=== PATIENT | female | born 1965 | race Caucasian/White ===

== ENCOUNTER 2021-03-22 09:53 | Inpatient (IN) | payer BC ==
[~2021-03-22] VITALS: Ht 177.8 cm; Wt 76.7 kg
[2021-03-22 11:07] LABS: CLARITY,URINE SLIGHTLY CLOUDY (Clear); COLOR,URINE YELLOW (Yellow); GLUCOSE, URINE NEGATIVE (Neg); KETONES,URINE NEGATIVE (Neg); LEUKOCYTE ESTERASE ,URINE NEGATIVE (Neg); NITRITES, URINE NEGATIVE (Neg); OCCULT BLOOD,URINE TRACE-INTACT (Neg); PROTEIN,URINE NEGATIVE (Neg); UROBILINOGEN,URINE 0.2 E.U/dL (0.2-1.0)
[2021-03-22 11:23] LABS: UA COLLECTION TYPE CLN CATCH MIDSTREAM
[2021-03-22 11:24] LABS: BACTERIA,URINE 1+ /HPF (Neg); MUCUS STRANDS FEW /LPF (Neg); SQUAMOUS EPITHELIAL CELL,UR MODERATE /LPF (FEW); WBC,URINE 0-4 /HPF (0-4)
[2021-03-22] MEDS ORDERED: ondansetron/PF 4mg/2ml inj IV ONE ×3 (15:40→21:25)
[2021-03-22] MEDS ORDERED: ketorolac tromethamine 15mg/ml inj. IV ONE (15:40)
[2021-03-22] MEDS ORDERED: normal saline 1000ml 1,000 ML IV ONE ×2 (15:40→17:20)
[2021-03-22 16:20] LABS: BASOPHILS % (AUTO) 0.4 % (0-1); EOSINOPHILS % (AUTO) 0.6 % (0-6); HEMATOCRIT 43.5 % (35.0-45.0); HEMOGLOBIN 14.4 g/dl (12.0-16.0); LYMPHOCYTES # (AUTO) 1.8 X10'3 (1.1-4.8); LYMPHOCYTES % (AUTO) 24.4 % (21-51); MEAN CORPUSCULAR HEMOGLOBIN 31.1 PG (27.0-31.0); MEAN CORPUSCULAR HGB CONC 33.2 g/dL (33.0-36.5); MEAN CORPUSCULAR VOLUME 93.9 FL (78-98); MONOCYTES # (AUTO) 0.6 X10'3 (0-0.9); MONOCYTES % (AUTO) 7.6 % (2-12); PLATELET COUNT 193 X10'3 (140-440); RED BLOOD COUNT 4.63 X10'6 (4.20-5.60); RED CELL DISTRIBUTION WIDTH 14.3 % (11.5-14.5); WHITE BLOOD COUNT 7.5 X10'3 (4.5-11.0)
[2021-03-22 16:37] LABS: ALANINE AMINOTRANSFERASE 24 U/L (12-78); ALBUMIN/GLOBULIN RATIO 1.1 (1.1-1.5); ALKALINE PHOSPHATASE 82 IU/L (46-116); ANION GAP 9 (8-16); ASPARTATE AMINO TRANSFERASE 13 U/L (10-37); BILIRUBIN,TOTAL 0.5 MG/DL (0.1-1.0); BLOOD UREA NITROGEN 19 MG/DL (7-18); BUN/CREATININE RATIO 15.3 (6.6-38.0); CALCIUM 9.1 MG/DL (8.5-10.1); CHLORIDE 107 MMOL/L (99-107); CREATININE 1.24 MG/DL (0.40-0.90); GLUCOSE 92 MG/DL (70-104); LIPASE 107 U/L (73-393); POTASSIUM 3.9 MMOL/L (3.5-5.1); SODIUM 145 MMOL/L (135-145); TOTAL CARBON DIOXIDE 28.8 MMOL/L (24-32); TOTAL PROTEIN 7.5 G/DL (6.4-8.2); eGFR 44 ML/MIN
[2021-03-22] MEDS ORDERED: morphine 4 MG/ML inj SYRINge IV ONE ×2 (17:20→21:25)
[2021-03-22] MEDS ORDERED: ZOLP5TAB8 PO (19:51)
[2021-03-22] MEDS ORDERED: TRAZ-251 PO (19:52)
[2021-03-22] MEDS ORDERED: VENL150C2 PO (19:54)
[2021-03-22] MEDS ORDERED: ALPR-624 PO (19:59)
[2021-03-22] MEDS ORDERED: SUMA25TA35 PO (20:00)
[2021-03-22] MEDS ORDERED: TOPI50TA PO (20:01)
[2021-03-22] MEDS ORDERED: TRIA10.8 BOTHNARES (20:06)
[2021-03-22] MEDS ORDERED: EREN70AU2 SQ (20:06)
[2021-03-22] MEDS ORDERED: LINA145C PO (20:07)
[2021-03-22] MEDS ORDERED: ibuprofen PO (20:09)
--- NOTE | 2021-03-22 21:06 | NUR ---
is at the bedside with pt. Addendum: 03/22/21 at [address] STUBBS AT BEDSIDE FOR ADMISSION. VITAL SIGNS STABLE AND VISITOR LEFT FOR THE NIGHT
--- NOTE | 2021-03-22 21:26 | NUR ---
VERBAL RECEIVED FOR ORDER OF MORPHINE AND ZOFRAN Addendum: 03/22/21 at 2127 by LINA BY FELI LING
[2021-03-22] MEDS ORDERED: ALPRAZolam 0.5mg tablet PO PRN (22:20)
[2021-03-22] MEDS ORDERED: SUMAtriptan 25 MG tablet PO PRN (22:20)
[2021-03-22] MEDS ORDERED: zolpidem 5mg tablet PO PRN ×2 (22:20→23:35)
--- NOTE | 2021-03-22 22:23 | NUR ---
PT PROVIDED DINNER TRAY. ATE 25%. AWAITING ADMISSION ORDERS. sTABLE VS. CURRENTLY CHA WEEKS AND USING HER TABLET.
[2021-03-22] MEDS ORDERED: HYDROmorphone/PF 0.2 MG/ML SYRINGE IV ONE (22:55)
[2021-03-22] MEDS ORDERED: HYDROmorphone 1 mg/ml syringe IV ONE (23:10)
[2021-03-23] VITALS (16 sets, daily range): BP systolic 107–142; BP diastolic 63–77
[2021-03-23] MEDS ORDERED: acetaminophen 325mg tablet PO PRN ×2 (00:10)
[2021-03-23] MEDS ORDERED: bisacodyl 10mg suppository rectal RC PRN (00:10)
[2021-03-23] MEDS ORDERED: mag hydrox/Alum hydrox/simeth 30ml oral suspension PO PRN (00:10)
[2021-03-23] MEDS ORDERED: diphenhydrAMINE 50 mg/ml inj IV PRN (00:10)
[2021-03-23] MEDS ORDERED: HYDROmorphone inj. 0.5 MG/0.5 ML DISP.SYRIN IV PRN (00:10)
[2021-03-23] MEDS ORDERED: magnesium hydroxide 30ml (MOM) UD suspension PO PRN (00:10)
[2021-03-23] MEDS ORDERED: acetaminophen 650mg rectal suppository RC PRN (00:10)
[2021-03-23] MEDS ORDERED: HYDROcodone/acetaminophen 5mg/325mg tablet PO PRN (00:10)
[2021-03-23] MEDS ORDERED: diphenhydrAMINE 25mg capsule PO PRN (00:10)
[2021-03-23] MEDS: topiramate 25mg tablet PO SCH ×2 (00:15→20:28)
[2021-03-23] MEDS: traZODone 50mg tablet PO SCH ×2 (00:19→20:20)
[2021-03-23] MEDS: dextrose 5%-1/2 normal saline 1,000 ML IV SCH ×3 (01:40→21:28)
--- NOTE | 2021-03-23 02:13 | NUR ---
Placed on hospital bed. Pt with stable vs. Currently lying on left side with blankets covering to her shouders.Awaiting ipa.
[2021-03-23 02:31] LABS: MAGNESIUM 2.1 MG/DL (1.5-2.4); PHOSPHORUS 5.4 MG/DL (2.3-4.5)
[2021-03-23] MEDS ORDERED: IBUP-1986 PO (04:46)
--- NOTE | 2021-03-23 04:50 | NUR ---
PT MOVED TO FTD ROOM. DENIES ANY NEEDS AT THIS TIME.
[2021-03-23] MEDS: ondansetron/PF 4mg/2ml inj IV PRN ×2 (07:10→13:37)
[2021-03-23] MEDS: morphine 2 MG/ML inj. syringe IV PRN ×4 (07:10→21:29)
--- NOTE | 2021-03-23 07:30 | NUR ---
Patient in room [facility]. I have received report from ROMEO Andujar (ED) and had the opportunity to ask questions and assume patient care.
[2021-03-23 07:56] LABS: PARTIAL THROMBOPLASTIN TIME 26 SECONDS (22-32)
[2021-03-23] MEDS: heparin, porcine 5000 units/ml vial SQ SCH ×2 (08:00→20:31)
[2021-03-23] MEDS ORDERED: ringers solution, lacted 1,000 ML IV ONE (08:30)
[2021-03-23] MEDS ORDERED: famotidine 20mg tablet PO ONE (08:39)
--- NOTE | 2021-03-23 08:48 | NUR ---
Called OR, patient on schedule for today after 1500. NPO starting NOW.
[2021-03-23] MEDS: pantoprazole 40mg Tablet.DR PO SCH (09:28)
[2021-03-23] MEDS: docusate sod 100mg capsule PO SCH ×2 (09:28→20:19)
[2021-03-23] MEDS: venlafaxine XR 75mg capsule (Q24H) PO SCH (09:29)
[2021-03-23] MEDS: CefTRIAXone/D5W-Rocephin 1gm 50 ML IV SCH (10:27)
--- NOTE | 2021-03-23 12:07 | NUR ---
PAGER ID: [phone] MESSAGE: Room 344A, Nataliia Monroy. IV Zofran not effective. Compazine? Thanks, Suzanne [phone]
[2021-03-23] MEDS ORDERED: zolpidem 5mg tablet PO PRN (13:24)
[2021-03-23] MEDS ORDERED: ZOLP12.543 PO (13:33)
--- NOTE | 2021-03-23 14:45 | NUR ---
Pt taken to OR.
[2021-03-23] MEDS ORDERED: iohexol 300 MG/1 ML 50ml polymer ONE (14:49)
[2021-03-23] MEDS ORDERED: meperidine/PF 25mg/ml syringe IV PRN (14:55)
[2021-03-23] MEDS ORDERED: morphine 2 MG/ML inj. syringe IV PRN (14:55)
[2021-03-23] MEDS ORDERED: ondansetron/PF 4mg/2ml inj IV PRN (14:55)
[2021-03-23] MEDS ORDERED: ringers solution, lacted 1,000 ML IV SCH (14:55)
[2021-03-23] MEDS ORDERED: hydrALAZINE 20mg/ml inj. IV PRN (14:55)
[2021-03-23] MEDS ORDERED: proCHLORperazine 10 MG/2 ml inj IV PRN (14:55)
[2021-03-23] MEDS ORDERED: acetaminophen 1,000mg/100ml IV 100 ML IV PRN (14:55)
[2021-03-23] MEDS ORDERED: morphine 4 MG/ML inj SYRINge IV PRN (14:55)
[2021-03-23] MEDS ORDERED: HYDROmorphone/PF 0.2 MG/ML SYRINGE IV PRN ×2 (14:55)
[2021-03-23] MEDS ORDERED: labetalol 20mg/4ml (5mg/ml) syringe IV PRN (14:55)
[2021-03-23] MEDS ORDERED: scopolamine 1mg/72 hr patch TD ONE (15:03)
[2021-03-23] MEDS ORDERED: sevoflurane 250ml liquid IH ONE (15:31)
[2021-03-23] MEDS ORDERED: fentaNYL/PF 50MCG/1 ML 2ML syringe ONE (15:35)
[2021-03-23] MEDS ORDERED: midazolam 1 mg/ML 2ml injection ONE (15:47)
[2021-03-23] MEDS ORDERED: LIDOcaine 2% (20mg/ml) 5ml vial ONE (15:48)
[2021-03-23] MEDS ORDERED: propofol inj 20 ML IV ONE (15:48)
[2021-03-23] MEDS ORDERED: dexamethasone sod phosphate 4mg/ml inj. ONE (15:48)
[2021-03-23] MEDS ORDERED: ondansetron/PF 4mg/2ml inj ONE (15:49)
--- NOTE | 2021-03-23 16:20 | NUR ---
Received from OR via , accompanied by Anesthesiologist and report given by Anesthesiolgist. PATIENT WAKING UP, DENIES PAIN, V/S WNL, CSM INTACT, SCD ON, 20G PIV TO RUE. ELINOR PAD W/ SCANT DRAINAGE
--- NOTE | 2021-03-23 16:26 | NUR ---
PAGER ID: [phone] MESSAGE: [facility], Nataliia Monroy. Please call me re: imitrex med. Thanks, Suzanne [phone]
--- NOTE | 2021-03-23 17:00 | NUR ---
PATIENT A&OX4, DENIES PAIN, V/S WNL, CSM INTACT, SCD ON, 20G PIV TO RUE. ELINOR PAD W/ SCANT DRAINAGE. TAKEN TO 344A WITH ALL BELONGINGS AND HOOKED UP TO MONITORS IN ROOM AND REPORT GIEVN TO BONDERIZER OPERATOR WHO HAS TAKEN OVER PATIENT CARE.
--- NOTE | 2021-03-23 17:22 | NUR ---
Per Zeke - Imitrix can be given 2 hours PRN max dose 200mg per Day.
[2021-03-23] MEDS ORDERED: SUMAtriptan 25 MG tablet PO PRN ×2 (17:25→18:01)
--- NOTE | 2021-03-23 18:29 | NUR ---
Patient in room [facility]. I have received report from ROMEO Palacios and had the opportunity to ask questions and assume patient care.
--- NOTE | 2021-03-23 18:34 | NUR ---
Problems reprioritized. Patient report given, questions answered & plan of care reviewed with ROMEO Barakat.
[2021-03-23] MEDS: lactobacillus rhamnosus 10,000 MMU CELLS/CAPSULE PO SCH (20:21)
[2021-03-23] MEDS: ondansetron 4mg rapidly disintigrating tab PO PRN (20:56)
[2021-03-23] MEDS ORDERED: temazepam 15mg capsule PO PRN (21:00)
[2021-03-23] MEDS ORDERED: traZODone 50mg tablet PO SCH (21:00)
[2021-03-23] MEDS ORDERED: topiramate 25mg tablet PO SCH (21:00)
[2021-03-24] VITALS: BP 138/70
[2021-03-24] MEDS: ondansetron 4mg rapidly disintigrating tab PO PRN ×2 (05:26→12:20)
[2021-03-24] MEDS: HYDROcodone/acetaminophen 10/325mg tab PO PRN ×2 (05:29→12:20)
--- NOTE | 2021-03-24 06:01 | NUR ---
Problems reprioritized. Patient report given, questions answered & plan of care reviewed with ROMEO Owens amd ROMEO Palacios.
[2021-03-24 06:02] LABS: BASOPHILS % (AUTO) 0.4 % (0-1); EOSINOPHILS % (AUTO) 0.3 % (0-6); HEMATOCRIT 35.6 % (35.0-45.0); HEMOGLOBIN 11.9 g/dl (12.0-16.0); LYMPHOCYTES # (AUTO) 1.6 X10'3 (1.1-4.8); LYMPHOCYTES % (AUTO) 35.6 % (21-51); MEAN CORPUSCULAR HGB CONC 33.5 g/dL (33.0-36.5); MEAN CORPUSCULAR VOLUME 92.6 FL (78-98); MEAN PLATELET VOLUME 8.6 FL (7.4-10.4); MONOCYTES # (AUTO) 0.4 X10'3 (0-0.9); MONOCYTES % (AUTO) 9.7 % (2-12); NEUTROPHILS # (AUTO) 2.5 X10'3 (1.8-7.7); PLATELET COUNT 147 X10'3 (140-440); RED BLOOD COUNT 3.85 X10'6 (4.20-5.60); RED CELL DISTRIBUTION WIDTH 13.7 % (11.5-14.5); WHITE BLOOD COUNT 4.6 X10'3 (4.5-11.0)
--- NOTE | 2021-03-24 06:16 | NUR ---
Patient in room [facility]. I have received report from ROMEO GARCIA, and had the opportunity to ask questions and assume patient care.
[2021-03-24 06:51] LABS: ALANINE AMINOTRANSFERASE 16 U/L (12-78); ALBUMIN 2.9 G/DL (3.4-5.0); ALKALINE PHOSPHATASE 77 IU/L (46-116); ANION GAP 6 (8-16); ASPARTATE AMINO TRANSFERASE 8 U/L (10-37); BILIRUBIN,TOTAL 0.4 MG/DL (0.1-1.0); BLOOD UREA NITROGEN 14 MG/DL (7-18); BUN/CREATININE RATIO 17.3 (6.6-38.0); CALCIUM 8.5 MG/DL (8.5-10.1); CHLORIDE 111 MMOL/L (99-107); CREATININE 0.81 MG/DL (0.40-0.90); GLUCOSE 119 MG/DL (70-104); POTASSIUM 3.8 MMOL/L (3.5-5.1); SODIUM 143 MMOL/L (135-145); TOTAL CARBON DIOXIDE 25.6 MMOL/L (24-32); TOTAL PROTEIN 5.8 G/DL (6.4-8.2); eGFR 73 ML/MIN
[2021-03-24 07:22] VITALS: BP 95/49
[2021-03-24] MEDS: heparin, porcine 5000 units/ml vial SQ SCH (08:02)
[2021-03-24] MEDS: pantoprazole 40mg Tablet.DR PO SCH (08:03)
[2021-03-24] MEDS: lactobacillus rhamnosus 10,000 MMU CELLS/CAPSULE PO SCH (08:03)
[2021-03-24] MEDS: venlafaxine XR 75mg capsule (Q24H) PO SCH (08:03)
[2021-03-24] MEDS: docusate sod 100mg capsule PO SCH (08:03)
[2021-03-24] MEDS: CefTRIAXone/D5W-Rocephin 1gm 50 ML IV SCH (08:04)
[2021-03-24] MEDS: dextrose 5%-1/2 normal saline 1,000 ML IV SCH (08:05)
--- NOTE | 2021-03-24 08:23 | NUR ---
Spoke with pt and pt spouse. 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
--- NOTE | 2021-03-24 10:13 | NUR ---
Called Dr Ruiz [phone]. Ok to d/c to home; pt will get a call from his ofc next week for follow up.
--- NOTE | 2021-03-24 10:32 | NUR ---
PAGE SENT PAGER ID: [phone] MESSAGE: EdwardA, BELL, PT REQUESTS PAIN MEDS BE CHANGED FROM NORCO TO OXI. PT REPORTS USING OXI 5/325 X2 AT HOME WITH GOOD EFFECT. THANKS, DIEUDONNE, [phone]
[2021-03-24 11:00] VITALS: BP 100/51
--- NOTE | 2021-03-24 11:22 | NUR ---
Paged Dr Alanis PAGER ID: [phone] MESSAGE: Room 344A, Nataliia Monroy. please call re: oxycodone 5mg for d/c, Suzanne [phone]
--- NOTE | 2021-03-24 11:35 | NUR ---
Pain meds for d/c Per Dr Alanis - she will not prescibe pain med for d/c. Called Dr Ruiz's office, spoke with JUANI Whitmore. She will get with and return call to see if they can prescribe something until they see her next week.
--- NOTE | 2021-03-24 12:04 | NUR ---
Pged Dr Ramirez PAGER ID: [phone] MESSAGE: Room 360A, Mike Flowers. Pt requesting enema. Dulcolax not effective. Thanks, Suzanne [phone] Addendum: 03/24/21 at 1311 by Suzanne Peguero RN Wrong patient
--- NOTE | 2021-03-24 12:27 | NUR ---
Received call back from JUANI Whitmore for Dr Ruiz. He will not prescribe any pain medication.
--- NOTE | 2021-03-24 13:00 | NUR ---
Received call from Dr Ruiz - he is surprised that Dr Alanis wont prescribe pain meds. He advised that the patient can call on Tuesday 03/27 to his office if she still is in pain. He is not able to write something now but will if she still needs something stronger than tylenol or ibuprofen on Saturday. Verbalized all this to the patient and the patient spouse - wrote Dr Singleton # on the d/c paperwork.
--- NOTE | 2021-03-24 13:29 | NUR ---
PIV REMOVED WITH TIP INTACT, PROCEDURE TOLERATED WELL BY PT. DISCHARGE INSTRUCTIONS REVIEWED WITH PT, PT AND SO GIVEN OPPORTUNITY TO ASK QUESTIONS. PT MEDICALLY STABLE PER MD. PT WHEELED BY STAFF TO PRIVATE VEHICLE. PT D/C TO HOME.
--- NOTE | 2021-03-24 13:48 | NUR ---
Orientee documentation: I have reviewed and agree with all interventions, assessments performed and documented by ROMEO Owens.
== END 2021-03-24 13:10 | disposition home or self-care (01) | DRG 661 ==
LOC: ER 09:54 → PACU 03-23 00:09 → ED HOLD 03-23 00:09 → UNDOADMIN 03-23 00:09 → PACU 03-23 08:03 → SUR 3N 03-23 08:03
PROVIDERS: ADMIT Family Medicine; ATTEND Family Medicine
PROC: 0TC78ZZ Extirpation of Matter from Left Ureter, Via Natural or Artificial Opening Endoscopic (ICD-10-PCS; 2021-03-23)
PROC: BT1F1ZZ Fluoroscopy of Left Kidney, Ureter and Bladder using Low Osmolar Contrast (ICD-10-PCS; 2021-03-23)
PROC: 0T768DZ Dilation of Right Ureter with Intraluminal Device, Via Natural or Artificial Opening Endoscopic (ICD-10-PCS; principal; 2021-03-23 15:31)
DX: N13.6 Pyonephrosis (principal); E83.39 Other disorders of phosphorus metabolism; E86.0 Dehydration; Z20.822 Contact with and (suspected) exposure to COVID-19; F32.9 Major depressive disorder, single episode, unspecified; F41.9 Anxiety disorder, unspecified; G43.909 Migraine, unspecified, not intractable, without status migrainosus; G47.00 Insomnia, unspecified; N17.9 Acute kidney failure, unspecified; Z87.442 Personal history of urinary calculi; Z90.49 Acquired absence of other specified parts of digestive tract
CPT/HCPCS: 96374; 96375; 96376; 99285; Z7506; 36415; 74176; 74420; 76000; 80053; 81001; 83690; 83735; 84100; 85025; 85610; 85730; 87081; 87635; 93005; A4618; A7000; C1769; C2617; C9803; G0378; J0131; J0696; J1100; J1170; J1644; J1885; J2001; J2250; J2270; J2405; J2704; J3010; J7030; Q9967